=== PATIENT | male | born 1970 | race American Indian/Alaskan Native ===

== ENCOUNTER 2019-05-11 05:01 | Emergency (ER) | payer SELFPAY ==
[2019-05-11 05:05] VITALS: BP 118/70
--- NOTE | 2019-05-11 07:58 | Emergency Department Report ---
ED Back Pain/Injury HPI - General Chief Complaint: Back Pain/Injury Stated Complaint: SOB,BACK PAIN Time Seen by Provider: 05/11/19 07:55 Source: patient Limitations: No Limitations - History of Present Illness Initial Comments: Pt co low back pain. no fever/chills/dysuria - Related Data Home Medications Medication Instructions Recorded Confirmed Last Taken Aspirin 81 mg PO DAILY 06/21/18 06/21/18 06/21/18 hydroCHLOROthiazide [HCTZ] 25 mg PO QDAY 06/21/18 06/21/18 06/21/18 Previous Rx's Medication Instructions Recorded Last Taken Type Cyclobenzaprine [Flexeril] 10 mg PO TID PRN #25 tablet 06/21/18 Unknown Rx Ibuprofen 800 mg PO TID PRN #30 tablet 06/21/18 Unknown Rx Allergies Allergy/AdvReac Type Severity Reaction Status Date / Time No Known Allergies Allergy Unverified 06/21/18 13:08 ED Review of Systems ROS: Stated complaint: SOB,BACK PAIN Other details as noted in HPI Comment: All other systems reviewed and negative ED Back Pain Physical Exam - Exam General: Vital signs noted. No distress. Alert and acting appropriately. ED Course Vital Signs 05/11/19 05:03 Temperature 96.9 F L Pulse Rate 65 Respiratory 18 Rate Blood Pressure 118/70 O2 Sat by Pulse 100 Oximetry - Reevaluation(s) Reevaluation #1: 05/11/19 0810 not in room 0830 not in room Critical care attestation.: If time is entered above; I have spent that time in minutes in the direct care of this critically ill patient, excluding procedure time. ED Disposition Clinical Impression: Back pain Disposition: EL Is pt being admited?: No Condition: Stable Referrals: PRIMARY CARE, [Primary Care Provider] - 3-5 Days Time of Disposition: 09:00
== END 2019-05-11 08:10 | disposition left against medical advice (07) ==
LOC: ED 05:01
DX: M54.5 Low back pain (principal); R06.02 Shortness of breath; Z79.82 Long term (current) use of aspirin; Z79.899 Other long term (current) drug therapy
CPT/HCPCS: 99281